=== PATIENT | male | born 1995 | race Caucasian/White ===

== ENCOUNTER 2025-01-25 10:36 | Outpatient (CLI) | payer OTHER, SELFPAY ==
[2025-01-25 12:27] LABS: HCT 45.8 % (40.0-50.0); HGB 15.9 g/dL (13.5-17.5); MCH 29.2 pg (27.0-33.0); MCHC 34.7 % (32.0-36.0); MCV 84 fL (80-95); MPV 8.6 fL (8.0-11.0); Platelet Count 271 10^3/uL (130-400); RBC 5.45 10^6/uL (4.36-5.78); RDW 12.4 % (11.8-14.1); RDW-SD 37.6 fL; WBC 4.49 10^3/uL (4.4-10.8)
[2025-01-25 12:50] LABS: ALT 45 U/L (16-63); AST 23 U/L (15-37); Albumin 4.6 g/dL (3.4-5.0); Alkaline Phosphatase 71 U/L (46-116); Anion Gap 9.2 mmol/L (3-11); BUN 14 mg/dL (7-18); Bilirubin, Total 1.1 mg/dL (0.2-1.0); CO2 27.8 mmol/L (21.0-32.0); Calcium 9.6 mg/dL (8.5-10.1); Calculated LDL 157 mg/dL (<100); Chloride 102 mmol/L (98-107); Cholesterol 209 mg/dL (<200); Estimated GFR 103.19 (mL/min/1.73m2); Glucose 102 mg/dL (74-106); HDL Cholesterol 36 mg/dL (>or=40); Potassium 3.7 mmol/L (3.5-5.1); Sodium 139 mmol/L (136-145); TSH (W/Ref FT4) 1.22 uIU/mL (0.36-3.74); Total Protein 7.9 g/dL (6.4-8.2); Triglyceride 80 mg/dL (<150)
[2025-01-25 18:32] LABS: HIV-1/2 Ag & Ab Screen Negative (Negative)
[2025-01-26 09:50] LABS: HSV Type 1 Ab, IgG Negative (Negative); HSV Type 2 Ab, IgG Negative (Negative)
[2025-01-26 10:11] LABS: Syphilis Serology (RPR) Negative (Negative)
== END 2025-01-25 10:37 | disposition home or self-care (01) ==
LOC: LOS 10:36
PROVIDERS: PCP Nurse Practitioner Family; Visit Provider Nurse Practitioner Family
DX: F32.A Depression, unspecified; F41.9 Anxiety disorder, unspecified; J45.909 Unspecified asthma, uncomplicated; L53.9 Erythematous condition, unspecified; Z20.2 Contact with and (suspected) exposure to infections with a predominantly sexual mode of transmission
CPT/HCPCS: 36415; 80053; 80061; 85027; 87389; 83036; 84443; 86592; 86695; 86696